=== PATIENT | female | born 1965 | race Hispanic/Latino ===

== ENCOUNTER 2022-06-09 18:09 | Emergency (ER) | payer OTHER ==
[~2022-06-09 18:09] MED LIST: Iopamidol-370 76% 500 ML 1 ML ONE
[2022-06-09 18:41] LABS: #Basophils 0.1 thou/uL (0.0-0.2); #Eosinphils 0.1 thou/uL (0.0-0.7); #Lymphocytes 3.3 thou/uL (1.20-3.40); #Monocytes 0.5 thou/uL (0.11-0.59); %Basophils 1.6 % (0.0-1.0); %Eosinophils 1.4 % (0.0-10.0); %Lymphocytes 46.6 % (21.0-51.0); %Monocytes 7.3 % (0.0-10.0); %Neutrophils 43.1 % (42.0-75.0); Hemoglobin 12.4 g/dL (12.0-16.0); Mean Corpuscular Hemoglobin 35.4 pg (27.0-31.0); Mean Platelet Volume 9.4 fL (7.4-10.4); Platelet Count 50 thou/uL (130-400); RBC Distribution Width 13.4 % (11.5-14.5); Red Blood Cell (RBC) Count 3.51 mill/uL (4.20-5.40)
[2022-06-09 18:52] LABS: ALT (SGPT) 53 U/L (8-55); AST (SGOT) 143 U/L (5-34); Albumin 2.6 g/dL (3.5-5.0); Alkaline Phosphatase 151 U/L (40-110); Anion Gap 16 mmol/L (10-20); BUN (Urea Nitrogen) Less than 4 mg/dL (9.8-20.1); Bilirubin, Total 2.7 mg/dL (0.2-1.2); Calc. Creatinine Clearance 0 mL/min (70-130); Calcium 7.7 mg/dL (7.8-10.44); Carbon Dioxide 26 mmol/L (22-29); Chloride 99 mmol/L (98-107); Estimated GFR 105; Globulin 4.8 g/dL (2.4-3.5); Glucose 251 mg/dL (70-105); Lipase 44 U/L (8-78); Potassium 4.4 mmol/L (3.5-5.1); Protein, Total 7.4 g/dL (6.0-8.3); Sodium 137 mmol/L (136-145)
[2022-06-09 19:01] LABS: MDiff Complete? YES; Macrocytosis SLIGHT = 6-15 cells (100X) (0-5/hpf); Platelet Morphology Comment Appears Decreased
[2022-06-09 20:02] LABS: Acetaminophen Less than 10.0 mcg/mL (10.0-30.0); Alcohol 204 mg/dL (Less than 10); Salicylate Less than 8.0 mg/dL (15.0-30.0)
[2022-06-09] MEDS ORDERED: Morphine 4 MG/ML VIAL ONE (20:43)
[2022-06-09] MEDS ORDERED: Lorazepam 2 MG/ML VIAL ONE (20:43)
[2022-06-09] MEDS ORDERED: Ketorolac Tromethamine 30 MG/ML VIAL ONE (20:44)
[2022-06-09] MEDS ORDERED: Ondansetron PF 4 MG/2 ML Vial ONE (20:44)
== END 2022-06-09 22:50 | disposition home or self-care (01) ==
LOC: ERS 18:09
DX: K70.31 Alcoholic cirrhosis of liver with ascites (principal); F10.20 Alcohol dependence, uncomplicated; K57.90 Diverticulosis of intestine, part unspecified, without perforation or abscess without bleeding; E11.9 Type 2 diabetes mellitus without complications; I10 Essential (primary) hypertension; Y90.7 Blood alcohol level of 200-239 mg/100 ml
CPT/HCPCS: 36415; 74177; 76705; 80053; 80307; 83690; 85025; 96374; 96375; J1885; J2060; J2270; J2405; Q9967

== ENCOUNTER → 2022-10-14 | Day surgery (SDC) | payer BC | END | disposition home or self-care (01) | LOC: MRI 12:00 | PROVIDERS: ATTEND Family Medicine Sports Medicine | DX: M47.26 Other spondylosis with radiculopathy, lumbar region (principal); M51.16 Intervertebral disc disorders with radiculopathy, lumbar region; M51.37 Other intervertebral disc degeneration, lumbosacral region; M48.07 Spinal stenosis, lumbosacral region; S32.039A Unspecified fracture of third lumbar vertebra, initial encounter for closed fracture; M47.815 Spondylosis without myelopathy or radiculopathy, thoracolumbar region | CPT/HCPCS: 72148 ==